=== PATIENT | female | born 1965 | race Two or more races ===

== ENCOUNTER → 2017-07-16 | Outpatient (CLI) | payer OTHER ==
[2017-04-02 08:12] VITALS: BP 120/62
[~2017-07-16] MED LIST: ATOR20TA58 PO; DULO60CA6 PO; FAMO20TA5 PO; HYDR12.53 PO; SERT100T PO; TRAZ100T12 PO
--- NOTE | 2017-07-16 13:30 | KCIC ---
Bilateral digital screening mammograms: Reason for examination: Routine screening. Comparison is made to previous studies dated 01/30/2014 and 06/28/2012. The skin and nipples show no abnormalities. No abnormal axillary lymph nodes are seen. The breast parenchyma shows scattered fibroglandular density. (Breast density: Category B.) There are no dominant masses, suspicious calcifications or architectural distortions. Impression: No evidence of malignancy. Recommend routine screening. BI-RADS Category 1: Negative. "Our facility is accredited by the [employer] Mammography [employer]." This patient's information has been entered into a reminder system for the patient to be notified with the results of her examination and a target date for the next mammogram. Electronically signed by: Bridget Jacobo MD (07/16/2017 1:27 PM) [id number]
== END | disposition home or self-care (01) ==
LOC: KCIC MAMMO 11:44
PROVIDERS: ATTEND Family Medicine
DX: Z12.31 Encounter for screening mammogram for malignant neoplasm of breast (principal)
CPT/HCPCS: G0202; 77067

== ENCOUNTER → 2018-10-03 | Outpatient (CLI) | payer MEDICARE, OTHER ==
[2017-04-02 08:12] VITALS: BP 120/62
[~2018-10-03] MED LIST changes: +TRAZ-86 PO; -TRAZ100T12 PO
--- NOTE | 2018-10-03 15:53 | KCIC ---
Indication:Right foot pain for 3 weeks status post injury. TECHNIQUE: 3 views of the right foot COMPARISON:None FINDINGS: Mild diffuse osteopenia. No acute fracture or dislocation. No arthritic process. No soft tissue abnormality. IMPRESSION: As above. Electronically signed by: Kaiden Sellers DO (10/03/2018 3:50 PM) [id number]
--- NOTE | 2018-10-03 15:58 | KCIC ---
EXAM: AP, mortise and lateral views of the left ankle DATE: 10/03/2018 12:00 AM INDICATION: Right ankle pain-injury 3 weeks ago COMPARISON: No Prior FINDINGS: Os trigonum is incidentally seen. No evidence for acute fracture or dislocation. Diffusely decreased bone mineral density. Small plantar calcaneal enthesophyte. IMPRESSION: 1. No evidence of acute fracture or dislocation. 2. Decreased bone mineral density. 3. Small plantar calcaneal enthesophyte. Electronically signed by: Pete Kincaid MD (10/03/2018 3:54 PM) [facility]
--- NOTE | 2018-10-03 15:59 | KCIC ---
EXAM: AP pelvis, AP and lateral views of the right hip DATE: 10/03/2018 12:00 AM INDICATION: Right hip pain-injury 3 weeks ago COMPARISON: No Prior FINDINGS/ IMPRESSION: 1. No evidence of acute fracture or dislocation. 2. Joint spaces are preserved without significant degenerative/proliferative change. 3. No definite pubic symphysis or hip joint chondral calcinosis. Electronically signed by: Pete Kincaid MD (10/03/2018 3:56 PM) [facility]
== END | disposition home or self-care (01) ==
LOC: KCIC 11:02
PROVIDERS: ATTEND Physician Assistant Medical
DX: M79.671 Pain in right foot (principal); M25.571 Pain in right ankle and joints of right foot; M25.551 Pain in right hip; M85.88 Other specified disorders of bone density and structure, other site
CPT/HCPCS: 73502; 73610; 73630

== ENCOUNTER → 2021-11-28 | Outpatient (CLI) | payer MEDICARE ==
[2017-04-02 08:12] VITALS: BP 120/62
[~2021-11-28] MED LIST changes: -DULO60CA6 PO; +DULO60CA7 PO; -HYDR12.53 PO; +HYDR12.575 PO; +TRAZ-123 PO; -TRAZ-86 PO
--- NOTE | 2021-11-28 15:21 | RAD ---
Site ID: [id number] Gastric emptying scan. INDICATION: 56 years Female Reason: ABDOMINAL PAIN, DIARRHEA . After the oral administration of 1.8 mCi of technetium 99m sulfur colloid mixed in a meal , images ov er the stomach with counts performed. FINDINGS: Gastric Retention is: 33% at one hour (30-90% ref), 16% at 2 hours(<60% ref), 4%, at 3 hours, (<30% ref) 1% at 4 hours(<10% ref). The T 1/2 for gastric emptying was calculated to be 49 minutes (normal 45 to 110 minutes). [Reference: Normal <10% at 4 hours. Abnormal - Delayed: Grade 1 (mild) 11-20%, grade 2 (moderate) 21 -35%, grade 3 (severe) 36-50%, grade 4 (very severe) greater than 50%, Rapid < 30% at 1 hour] IMPRESSION: Gastric emptying is relatively fast but still within normal limits. Electronically signed by: Bebeto Mack MD (11/28/2021 3:18 PM) [id number]
== END ==
LOC: NM 09:45
PROVIDERS: ATTEND Internal Medicine Gastroenterology
DX: R10.9 Unspecified abdominal pain (principal); R19.7 Diarrhea, unspecified
CPT/HCPCS: 78264; A9541